=== PATIENT | female | born 1970 | race Caucasian/White ===

== ENCOUNTER 2023-07-09 10:58 | Outpatient (REF) | payer MEDICARE, MEDICAID, SELFPAY ==
--- NOTE | ~2023-07-09 | MR_ITS ---
EXAMINATION: MR BRAIN WITHOUT AND WITH CONTRAST CLINICAL INFORMATION: Temporal lobe epilepsy. COMPARISON: There are no prior studies available for comparison. TECHNIQUE: Multiplanar, multisequence MRI of the brain was obtained before and after the intravenous administration of 7 mL Gadavist. FINDINGS: No diffusion abnormalities are identified to suggest an acute or subacute infarct. No mass effect or midline shift is seen. The ventricles and sulci are normal in size. There are a few scattered foci of hyperintense T2 and FLAIR signal in the periventricular subcortical white matter, which are nonspecific. The hippocampi are symmetric in size and signal. No extra-axial fluid collections are seen. The brainstem appears normal. On postcontrast imaging, there is no abnormal parenchymal or leptomeningeal enhancement. No pathologic magnetic susceptibility artifact is identified on the gradient refocused acquisition. The cerebellar tonsillar tips are slightly low-lying, and extend approximately 3 mm below the level of the foramen magnum bilaterally but have normal contours. Marrow signal and midline structures are normal. There is a dextroscoliosis in the mid cervical spine. The major intracranial flow-voids at the level of the native of [place] are preserved. The dural venous sinus flow-voids are maintained. There is trace fluid at the right mastoid tip. The nasal septum is deviated to the left and there is a left-sided bony nasal septal spur. There is mild mucoperiosteal thickening in the ethmoid sinuses. MR/MR head/brain wo/w con IMPRESSION: 1. There are no acute bleeds or infarcts. There are no masses or areas of abnormal enhancement. The hippocampi are symmetric in size and signal.
[2023-07-09] MEDS: gadobutroL 7.5 ML VIAL IVPUSH (12:06)
== END 2023-07-09 10:59 | disposition home or self-care (01) ==
LOC: HO.MRI 10:58
PROVIDERS: Visit Provider Psychiatry & Neurology Neurology
DX: G40.209 Localization-related (focal) (partial) symptomatic epilepsy and epileptic syndromes with complex partial seizures, not intractable, without status epilepticus (principal)
CPT/HCPCS: 70553; A9585